=== PATIENT | male | born 1980 | race American Indian/Alaskan Native ===

== ENCOUNTER 2021-06-09 15:47 | Emergency (ER) | payer OTHER ==
[2021-06-09] MEDS ORDERED: LIDOCAINE 1%-EPI 1:100000 20 ML MDV SUBQ STA (16:00)
[2021-06-09] MEDS ORDERED: HYDROmorphone 1 MG/ML CARPUJECT IVP STA (16:00)
--- NOTE | 2021-06-09 16:01 | ED Physician Documentation ---
PD HPI UPPER EXT INJURY - Stated complaint Stated Complaint: FELL OFF SCAFFOLDING - History obtained from History obtained from: Patient - Additonal information Additional information: 40-year-old gentleman with history of type 2 diabetes who is on Metformin, he is up-to-date on tetanus. He was up on scaffolding and fell about 10 feet onto his left side. Complains of severe left shoulder pain. Also mild left hip pain but he is able to walk and bear weight. Review of Systems Constitutional: reports: Reviewed and negative Eyes: reports: Reviewed and negative Ears: reports: Reviewed and negative Nose: reports: Reviewed and negative Throat: reports: Reviewed and negative Cardiac: reports: Reviewed and negative PD PAST MEDICAL HISTORY - Present Medications Home Medications: Ambulatory Orders Medication Instructions Recorded Confirmed Oxycodone HCl/Acetaminophen 1 - 2 each PO Q6H PRN #20 tablet 06/09/21 [Percocet 5-325 mg Tablet] - Allergies Allergies/Adverse Reactions: Allergies Allergy/AdvReac Type Severity Reaction Status Date / Time morphine Allergy Unknown Verified 06/09/21 15:58 PD ED PE NORMAL - Vitals Vital signs reviewed: Yes - General General: Alert and oriented X 3, No acute distress - HEENT HEENT: PERRL, EOMI - Neck Neck: Supple, no meningeal sign, No bony TTP - Cardiac Cardiac: RRR, No murmur - Respiratory Respiratory: No respiratory distress, Clear bilaterally - Back Back: No CVA TTP, No spinal TTP - Derm Derm: Normal color, Warm and dry - Extremities Extremities: Other (There is an abrasion on the posterior left forearm, there is a deformity of the left shoulder probably consistent with dislocation. He is unable to range the left shoulder at all.) - Neuro Neuro: Alert and oriented X 3, Normal speech Results - Vitals Vitals: Vital Signs - 24 hr 06/09/21 06/09/21 15:58 16:40 Temperature 36.7 C Heart Rate 107 H 108 H Respiratory 22 12 Rate Blood Pressure 157/115 H O2 Saturation 98 Oxygen O2 Source Room air - Labs Labs: Laboratory Tests 06/09/21 16:06 Ethyl Alcohol < 5.0 - Rads (name of study) L shoulder XR Radiology: EMP read contemporaneously (Greater tuberosity of humeral head fracture with anterior dislocation) Procedures - Reduction Body part reduced: Left, Shoulder Fracture or dislocation: Fracture dislocation Anesthesia: Lidocaine (enter cc) (8ml intraacrticular after chloraprep) Shoulder reduction technique: [place] / ext rotation Reduction aftercare: Xray confirms reduction, Alignment improved, Splint applied - Procedural sedation Mallampati classification: I Sedation prep: Informed consent, Time out completed, PE performed, ASA 2 - mild disease (smoker) Sedation medications: propofol (100 then 50mg IVP) Patient status during sedation: Responds to tactile Sedation recovery: Recovered uneventfully Time in sedation (Minutes): 12 Departure - Departure Disposition: 01 Home, Self Care Clinical Impression: Shoulder dislocation Qualifiers: Encounter type: initial encounter Laterality: left Qualified Code(s): S43.005A - Unspecified dislocation of left shoulder joint, initial encounter Humeral fracture Qualifiers: Encounter type: initial encounter Humerus Location: proximal Fracture type: closed Fracture morphology: unspecified fracture morphology Laterality: left Qualified Code(s): S42.202A - Unspecified fracture of upper end of left humerus, initial encounter for closed fracture Condition: Good Record reviewed to determine appropriate education?: Yes Instructions: ED Dislocation Shoulder Redu Prescriptions: Oxycodone HCl/Acetaminophen [Percocet 5-325 mg Tablet] 1 - 2 each PO Q6H PRN #20 tablet PRN Reason: pain Comments: Prescription sent electronically to [facility] You need to follow-up with orthopedics within the week, call tomorrow or Sunday for an appointment. Do not drink or drive while taking prescription pain m edication. I am prescribing a short course of narcotic pain medication for you. These are potentially dangerous and addictive medications that should be used carefully. These medications may constipate you. Take an ocig-vmh-qtrsyra stool softener (docusate) twice daily with plenty of water while taking these medications. If you go 24 hours without a bowel movement, take zcwy-urr-bdhcmvs miralax, per package instructions. Do not drink or drive while taking these medications. If you received narcotic or sedating medications while in the emergency department, do not drive for 24 hours. Store this medication in a safe, secure place and out of reach of children. It is a violation of federal law to give or sell this medication to another person or to use in a manner other than prescribed. The ED will not refill narcotic prescriptions, including prescriptions lost or stolen. To dispose of unwanted medications: 1. [facility] at [address] in [place] has a medication drop box. They accept prescription medications (in pill form) Sunday through Sunday 9:00 a.m. to 5:00 p.m. 2. The [facility] [employer] accepts prescription medications (in pill form only) for disposal year round. Call for more information. 3. Contact the [facility] for the next [facility] sponsored prescription drug collection event. , [phone], or [phone]; Note that many narcotic pain relievers also contain Tylenol/acetaminophen. Please ensure that your total dose of acetaminophen from all sources does not exceed 3 g (3000 mg) per day. Forms: Activity restrictions
[2021-06-09] MEDS ORDERED: PROPOFOL 200 MG/20 ML VIAL IVP STA ×2 (16:24→16:59)
--- NOTE | 2021-06-09 16:32 | XRAY Report ---
PROCEDURE: Shoulder 3 View LT INDICATIONS: shoulder inj TECHNIQUE: 3 views of the shoulder were acquired. COMPARISON: None. FINDINGS: Bones: There is anterior dislocation at glenohumeral joint with slightly displaced fracture involving base of greater tuberosity and minimal lateral displacement of fractured fragment. No suspicious bon y lesions. Visualized ribs appear intact. Soft tissues: No suspicious soft tissue calcifications. IMPRESSION: Acute fracture involving greater tuberosity of humeral head with anterior dislocation at glenohumeral joint. Reviewed by: Jeferson Lazaro MD on 06/09/2021 4:31 PM PDT Approved by: Jeferson Lazaro MD on 06/09/2021 4:31 PM PDT Station ID: [id number]
--- NOTE | 2021-06-09 17:33 | XRAY Report ---
PROCEDURE: Shoulder 2 View LT INDICATIONS: post reduction TECHNIQUE: 2 views of the shoulder were acquired. COMPARISON: Films performed earlier the same day FINDINGS: There is reduction of the anterior glenohumeral joint dislocation. Slightly comminuted, essentially nondisplaced fracture of the greater tuberosity is present. There is likely a bony Bankart lesion ant erior and inferior to the glenoid. The AC joint and coracoclavicular joint appear normal. The visible rib arcs and underlying lung are within normal limits. No new soft tissue abnormalities. IMPRESSION: 1. Reduction of glenohumeral joint. 2. Nondisplaced but likely comminuted greater tuberosity fracture. 3. Probable bony Bankart lesion. Reviewed by: Joya Ponce MD on 06/09/2021 5:32 PM PDT Approved by: Joya Ponce MD on 06/09/2021 5:32 PM PDT Station ID: [id number]
[2021-06-09 18:02] VITALS: BP 158/105
== END 2021-06-09 18:02 | disposition home or self-care (01) ==
LOC: ED 15:47
DX: S42.255A Nondisplaced fracture of greater tuberosity of left humerus, initial encounter for closed fracture (principal); S43.015A Anterior dislocation of left humerus, initial encounter; S50.812A Abrasion of left forearm, initial encounter; M25.552 Pain in left hip; W12.XXXA Fall on and from scaffolding, initial encounter; Y99.0 Civilian activity done for income or pay; E11.9 Type 2 diabetes mellitus without complications; Z79.84 Long term (current) use of oral hypoglycemic drugs
CPT/HCPCS: 23665; 36415; 73030; 80320; 96374; 99152; 99284; 99285; J1170; 1040M; 94770

== ENCOUNTER 2021-06-16 12:00 | Outpatient (CLI) | payer OTHER ==
--- NOTE | 2021-06-16 12:41 | XRAY Report ---
PROCEDURE: Shoulder 2 View LT INDICATIONS: LEFT SHOULDER PAIN TECHNIQUE: Views of the shoulder were acquired. COMPARISON: None. FINDINGS: Bones: There is a transverse fracture of the left humeral head/neck. The greater tuberosity has a co mminuted fractured with mild displacement. A fracture of the inferior margin of the glenoid may also be present. No suspicious bony lesions. Visualized ribs appear intact. Soft tissues: No suspicious soft tissue calcifications. IMPRESSION: 1. Fractures of the left humeral head/neck and of the greater tuberosity. 2. Possible fracture of the inferior margin of the bony glenoid. Reviewed by: Dontrell Feliz on 06/16/2021 12:39 PM PDT Approved by: Dontrell Feliz on 06/16/2021 12:39 PM PDT Station ID: [id number]
== END 2021-06-16 23:59 | disposition home or self-care (01) ==
LOC: DI.N 12:00
PROVIDERS: ATTEND Orthopaedic Surgery
DX: S42.212A Unspecified displaced fracture of surgical neck of left humerus, initial encounter for closed fracture (principal); S42.252A Displaced fracture of greater tuberosity of left humerus, initial encounter for closed fracture

== ENCOUNTER 2021-07-04 14:19 | Outpatient (CLI) | payer OTHER ==
--- NOTE | 2021-07-05 09:47 | XRAY Report ---
PROCEDURE: Shoulder 3 View LT INDICATIONS: NONDISPLACED COMMINUTED FX OF SHAFT OF L HUMERUS TECHNIQUE: 4 views of the shoulder were acquired. COMPARISON: Left shoulder radiographs 06/16/2021 and 06/09/2021. FINDINGS: Bones: Minimally displaced fractures of the greater tuberosity and the humeral neck are redemonstrate d with unchanged alignment. The possible inferior glenoid fracture is not definitely redemonstrated. No suspicious bony lesions. Visualized ribs appear intact. Soft tissues: No suspicious soft tissue calcifications. IMPRESSION: Progressive healing changes and unchanged alignment of the proximal humeral fractures. Reviewed by: Dariusz Chan MD on 07/05/2021 9:46 AM PDT Approved by: Dariusz Chan MD on 07/05/2021 9:46 AM PDT Station ID: [id number]
--- NOTE | 2021-07-05 09:49 | XRAY Report ---
PROCEDURE: Hip w/Pelvis 2-3V LT INDICATIONS: LEFT HIP PAIN TECHNIQUE: AP pelvis with lateral view of the left hip. COMPARISON: None. FINDINGS: Bones: There is a minimally displaced fracture of the left inferior pubic ramus. No definite addition al displaced fracture of the left obturator ring is seen. The remaining pelvic bones appear to be int act. Pelvic ring appears intact. No suspicious bony lesions. Soft tissues: The visualized bowel gas pattern is normal. No suspicious soft tissue calcifications. IMPRESSION: Mildly displaced fracture of the left inferior pubic ramus. No additional pelvic fractur e is seen. However, if it will change the clinical management, a CT could be performed to evaluate fo r an additional pelvic ring fracture. Findings were discussed with the referring provider, Moisés Delgado PA-C, by telephone on 07/05/2021 at 9:47 AM.. Reviewed by: Dariusz Chan MD on 07/05/2021 9:48 AM PDT Approved by: Dariusz Chan MD on 07/05/2021 9:48 AM PDT Station ID: [id number]
== END 2021-07-04 14:20 ==
LOC: DI.N 14:19
PROVIDERS: ATTEND Physician Assistant
DX: S42.252D Displaced fracture of greater tuberosity of left humerus, subsequent encounter for fracture with routine healing (principal); S42.291D Other displaced fracture of upper end of right humerus, subsequent encounter for fracture with routine healing; S32.592A Other specified fracture of left pubis, initial encounter for closed fracture

== ENCOUNTER 2021-07-25 12:15 | Outpatient (CLI) | payer OTHER, MEDICARE ==
--- NOTE | 2021-07-25 14:27 | XRAY Report ---
PROCEDURE: Hip w/Pelvis 2-3V LT INDICATIONS: LEFT HIP PAIN TECHNIQUE: AP pelvis with lateral view(s) of the bilateral hip(s). COMPARISON: X-ray pelvis 07/04/2021 FINDINGS: Bones: Left inferior pubic ramus fracture demonstrates mild interval healing. No change in alignment. Pelvic ring appears intact. No suspicious bony lesions. Soft tissues: The visualized bowel gas pattern is normal. No suspicious soft tissue calcifications. IMPRESSION: Stable alignment with mild interval healing of left inferior pubic ramus fracture. Reviewed by: Karen Lemus MD on 07/25/2021 2:26 PM PDT Approved by: Karen Lemus MD on 07/25/2021 2:26 PM PDT Station ID: [id number]
--- NOTE | 2021-07-25 14:29 | XRAY Report ---
PROCEDURE: Shoulder 3 View LT INDICATIONS: LEFT SHOULDER PAIN TECHNIQUE: 3 views of the shoulder were acquired. COMPARISON: X-ray shoulder 06/09/2021, 06/16/2021, 07/04/2021 FINDINGS: Bones: Minimal interval healing with stable alignment of greater tuberosity and humeral neck fracture s. No suspicious bony lesions. Visualized ribs appear intact. Inferior glenoid is not well-visualiz ed. Soft tissues: No suspicious soft tissue calcifications. IMPRESSION: Stable alignment and minimal interval healing of previously noted greater tuberosity hum eral neck fractures. Reviewed by: Karen Lemus MD on 07/25/2021 2:27 PM PDT Approved by: Karen Lemus MD on 07/25/2021 2:27 PM PDT Station ID: [id number]
== END 2021-07-25 12:16 ==
LOC: DI.N 12:15
PROVIDERS: ATTEND Physician Assistant
DX: S42.252D Displaced fracture of greater tuberosity of left humerus, subsequent encounter for fracture with routine healing (principal); S32.592D Other specified fracture of left pubis, subsequent encounter for fracture with routine healing

== ENCOUNTER 2021-11-22 08:30 | Outpatient (CLI) | payer MEDICARE, OTHER ==
--- NOTE | 2021-11-23 09:21 | XRAY Report ---
PROCEDURE: Shoulder 3 View LT INDICATIONS: LEFT SHOULDER FRACTURE TECHNIQUE: 4 views of the shoulder were acquired. COMPARISON: X-ray left shoulder, 06/09/2051, 06/16/2021 and 07/25/2021. FINDINGS: Bones: The greater tuberosity fracture is healed or nearly healed. No dislocation. No suspicious bony lesions. Visualized ribs appear intact. Soft tissues: No suspicious soft tissue calcifications. IMPRESSION: Healed or nearly healed greater tuberosity fracture. Reviewed by: Neo Fenton MD on 11/23/2021 9:19 AM PST Approved by: Neo Fenton MD on 11/23/2021 9:19 AM PST Station ID: [id number]
--- NOTE | 2021-11-23 09:23 | XRAY Report ---
PROCEDURE: Pelvis 1 View INDICATIONS: PUBIC FRACTURE TECHNIQUE: 1 view(s) of the pelvis acquired. COMPARISON: X-ray pelvis, 07/04/2021 and 07/25/2021. FINDINGS: Bones: Further healing of left inferior pubic ramal fracture. No suspicious bony lesions. Mild hip and sacroiliac joint degeneration bilaterally. Soft tissues: Visualized bowel gas pattern is normal. No suspicious soft tissue calcifications. IMPRESSION: 1. Further healing of left inferior pubic ramal fracture. Reviewed by: Neo Fenton MD on 11/23/2021 9:22 AM PST Approved by: Neo Fenton MD on 11/23/2021 9:22 AM PST Station ID: [id number]
== END 2021-11-22 08:31 | disposition home or self-care (01) ==
LOC: DI.WOS 08:30
PROVIDERS: ATTEND Physician Assistant
DX: S42.355D Nondisplaced comminuted fracture of shaft of humerus, left arm, subsequent encounter for fracture with routine healing (principal); S32.592D Other specified fracture of left pubis, subsequent encounter for fracture with routine healing

== ENCOUNTER 2022-02-02 09:20 | Outpatient (CLI) | payer MEDICARE, OTHER ==
--- NOTE | 2022-02-02 18:31 | XRAY Report ---
PROCEDURE: Wrist 3 View LT INDICATIONS: LEFT WRIST SPRAIN TECHNIQUE: 3 views of the wrist were acquired. COMPARISON: None FINDINGS: Bones: No definite acute fractures or dislocations. No suspicious bony lesions. Specifically, no b karina abnormalities noted at the area of patient's pain as noted by skin BB marker. Soft tissues: No suspicious soft tissue calcifications. IMPRESSION: Left wrist without acute fracture or dislocation. If there is persistent clinical concern for a radiographically occult fracture, recommend immobilizat ion and repeat imaging in 10 to 14 days. Reviewed by: Justice Castorena MD on 02/02/2022 6:29 PM PDT Approved by: Justice Castorena MD on 02/02/2022 6:29 PM PDT Station ID: [id number]
== END 2022-02-02 23:59 | disposition home or self-care (01) ==
LOC: DI.N 09:20
PROVIDERS: ATTEND Physician Assistant Medical
DX: S63.592A Other specified sprain of left wrist, initial encounter (principal)

== ENCOUNTER 2022-10-05 18:52 | Emergency (ER) | payer MEDICARE, OTHER ==
--- NOTE | 2022-10-05 19:45 | XRAY Report ---
PROCEDURE: Shoulder 3 View RT INDICATIONS: trauma TECHNIQUE: 3 views of the shoulder were acquired. COMPARISON: None. FINDINGS: Bones: No fractures or dislocations. Mild to moderate acromioclavicular joint osteoarthritic changes are seen. No suspicious bony lesions. Visualized ribs appear intact. Soft tissues: No suspicious soft tissue calcifications. IMPRESSION: No acute right shoulder fracture or dislocation. 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 Reviewed by: Jeferson Lazaro MD on 10/05/2022 7:44 PM PST Approved by: Jeferson Lazaro MD on 10/05/2022 7:44 PM PST Station ID: [id number]
--- NOTE | 2022-10-05 20:36 | ED Physician Documentation ---
History of Present Illness - Stated complaint Stated Complaint: RT SHOULDER INJ - Chief complaint Chief Complaint: Trauma Ext - Additonal information Additional information: 42-year-old male presents to the emergency department for evaluation of acute right shoulder pain. He slipped on ice falling down 3 stairs. He denies any hyperextended his arm it was simply at his side but has had pain since. He has a history of a left shoulder dislocation was concerned this could have been dislocated as well. He does have a history of arthritis. He is denying pain elsewhere. No neck pain thoracic or lumbar spine pain normal gait. He did not lose consciousness or strike his head. He is not anticoagulated. Review of Systems Constitutional: reports: Reviewed and negative Cardiac: reports: Reviewed and negative Respiratory: reports: Reviewed and negative Musculoskeletal: reports: Joint pain PD PAST MEDICAL HISTORY - Past Medical History Past Medical History: Yes Respiratory: Asthma Psych: Bipolar disorder, Post traumatic stress disorder - Past Surgical History Past Surgical History: No - Present Medications Home Medications: Ambulatory Orders Medication Instructions Recorded Confirmed ALPRAZolam [Alprazolam] 0.5 mg PO DAILY PRN 10/05/22 10/05/22 ARIPiprazole [Aripiprazole] 15 mg PO DAILY 10/05/22 10/05/22 Albuterol Sulfate [Proair 1 - 2 puffs INH Q4HR PRN 10/05/22 10/05/22 Respiclick] Canagliflozin [Invokana] 100 mg PO DAILY 10/05/22 10/05/22 busPIRone [Buspar] 15 mg PO DAILY 10/05/22 10/05/22 - Allergies Allergies/Adverse Reactions: Allergies Allergy/AdvReac Type Severity Reaction Status Date / Time morphine Allergy Unknown Verified 10/05/22 19:21 - Social History Does the pt smoke?: Yes Smoking Status: Current every day smoker Does the pt drink ETOH?: Yes Does the pt have substance abuse?: No - Immunizations Immunizations are current?: Yes - POLST Patient has POLST: No PD ED PE EXPANDED - General General: Alert, No acute distress - Cardiac Cardiac: Regular Rate, Radial strong equal, Pedal strong equal - Respiratory Respiratory: Clear to ausultation luz. No: Distress, Labored - Back Back: Normal exam, Normal ROM. No: Vertebral tenderness (No tenderness elicited with palpation of the cervical thoracic or lumbar spinous processes. No step- off crepitus deformity. No signs of abrasion or ecchymosis on his skin exam), Soft tissue tenderness - Extremities Extremities: Right shoulder (Full range of motion of the right shoulder in all planes. Mild tenderness elicited at the right AC joint without swelling or erythema. Negative drop arm and negative Jurgenson/empty can) Results - Vitals Vitals: Vital Signs - 24 hr 10/05/22 19:17 Temperature 36 C L Heart Rate 88 Respiratory 16 Rate Blood Pressure 122/80 O2 Saturation 95 Oxygen O2 Source Room air - Rads (name of study) right shoulder Radiology: Final report received (No acute fracture or osseous lesion. Degenerative disease is seen at the AC joint) PD Medical Decision Making - ED course Complexity details: considered differential, d/w patient, d/w family ED course: 42-year-old male presents with acute right shoulder pain after fall down 3 stairs. No other associated Injury.X-rays negative for acute fracture or dislocation. Provocative testing for rotator cuff injury is negative. Patient Declined to receive Toradol. I suspect contusion or inflammation of arthritis seen on x-ray at the AC joint. Recommended NSAID and Tylenol. Emergent return precautions discussed Departure - Departure Disposition: 01 Home, Self Care Clinical Impression: Right shoulder pain Qualifiers: Chronicity: acute Qualified Code(s): M25.511 - Pain in right shoulder Condition: Stable Record reviewed to determine appropriate education?: Yes Comments: Herman the x-ray of your shoulder does not show a dislocation or any broken bones. It does show that you have some arthritis in your shoulder joint. After you have fall you most likely simply inflamed to this arthritis. I recommend that you take naproxen or alternate with Tylenol twice daily. I would expect pain and symptoms to be getting better over the next week. If not markedly improving follow-up with your primary care provider for consideration of evaluation with an MRI or referral to physical therapy
[2022-10-05 20:44] VITALS: BP 133/84
== END 2022-10-05 20:44 | disposition home or self-care (01) ==
LOC: ED 18:52
DX: M25.511 Pain in right shoulder (principal); M19.011 Primary osteoarthritis, right shoulder; W00.1XXA Fall from stairs and steps due to ice and snow, initial encounter; F17.200 Nicotine dependence, unspecified, uncomplicated
CPT/HCPCS: 99282; 99283

== ENCOUNTER 2024-02-22 09:15 | Outpatient (CLI) | payer MEDICARE, OTHER ==
--- NOTE | 2024-02-24 18:51 | XRAY Report ---
PROCEDURE: Lumbar Spine 4V INDICATIONS: CONTUSION OF LOWER BACK AND PELVIS TECHNIQUE: 4 views of the lumbar spine were acquired. COMPARISON: None. FINDINGS: Bones: 5 vyh-nsu-vwpkyml vertebrae are present. Transverse sclerosis in the superior endplate of L2 with questionable cortical irregularity. There is normal bony alignment. Mild multilevel degenerative changes with osteophytosis and disc height loss, notably at L1-L2 and L5-S1. No suspicious bony le sions. Oblique views demonstrate no pars defect. Soft tissues: Overlying bowel gas pattern is normal. No suspicious soft tissue calcifications. IMPRESSION: 1.Transverse sclerosis in the superior endplate of L2 which may represent sequela of an acute fractur e versus degenerative change. Correlate for point tenderness. If there is high clinical suspicion for a fracture, recommend CT or MRI for further evaluation. 2.Mild degenerative changes at L1-L2 and L5-S1. Reviewed by: Yazmin Duff MD on 02/24/2024 6:50 PM PDT Approved by: Yazmin Duff MD on 02/24/2024 6:50 PM PDT Station ID: [id number]
== END 2024-02-22 09:30 | disposition home or self-care (01) ==
LOC: DI.N 09:15
PROVIDERS: ATTEND Family Medicine
DX: S30.0XXA Contusion of lower back and pelvis, initial encounter (principal); M47.816 Spondylosis without myelopathy or radiculopathy, lumbar region; M47.817 Spondylosis without myelopathy or radiculopathy, lumbosacral region; R93.7 Abnormal findings on diagnostic imaging of other parts of musculoskeletal system

== ENCOUNTER 2024-05-02 08:39 | Outpatient (CLI) | payer MEDICARE, OTHER ==
--- NOTE | 2024-05-02 10:51 | Ultrasound Report ---
PROCEDURE: Abdomen Limited INDICATIONS: ELEVATED LFTS TECHNIQUE: Real-time focused scanning was performed of the abdomen, with image documentation. COMPARISONS: None. FINDINGS: Liver: Increased liver echogenicity, with posterior attenuation, most consistent with moderate to se shannan hepatic steatosis. Gallbladder: No gallstones, sludge, wall thickening or pericholecystic edema. Biliary ducts: Intrahepatic bile ducts are non-dilated. Extrahepatic bile duct caliber measures 4 m m. Normal is 6-7 mm or less in diameter, or 10 mm or less post-cholecystectomy. Pancreas: Visualized portions of the pancreas are sonographically normal. Right kidney: Normal in size and echotexture. Right kidney measures 11.5 cm long. No hydronephrosis or nephrolithiasis. No solid masses. No complex renal cystic lesions which require follow-up. IVC: Intrahepatic inferior vena cava is patent. Miscellaneous: No free abdominal fluid. IMPRESSION: Severe hepatic steatosis. Otherwise, unremarkable right upper quadrant abdominal ultrasound. Reviewed by: Justice Castorena MD on 05/02/2024 10:50 AM PDT Approved by: Justice Castorena MD on 05/02/2024 10:50 AM PDT Station ID: [id number]
== END 2024-05-02 08:40 | disposition home or self-care (01) ==
LOC: DI 08:39
PROVIDERS: ATTEND Physician Assistant
DX: R74.8 Abnormal levels of other serum enzymes (principal); K76.0 Fatty (change of) liver, not elsewhere classified

== ENCOUNTER 2024-06-06 08:00 | Outpatient (CLI) | payer MEDICARE | END 2024-06-06 23:59 | disposition home or self-care (01) | LOC: LAB.N 08:00 | PROVIDERS: ATTEND Nurse Practitioner | DX: K52.9 Noninfective gastroenteritis and colitis, unspecified (principal) | CPT/HCPCS: 82962 ==